=== PATIENT | female | born 2000 | race Caucasian/White ===

== ENCOUNTER 2024-04-08 16:25 | Emergency (ER) | payer BC, SELFPAY ==
--- NOTE | 2024-04-08 16:39 | ED.GENMED ---
History of Present Illness
General
Chief Complaint: Crisis Evaluation
Source: patient
Exam Limitations: none
Time Seen by Provider: 04/08/24 16:39
Nursing documentation reviewed up to this point in time: agreed with
History of Present Illness
History of Present Illness:
Is a 23-year female presents to the ER complaining of worsening anxiety and depression for the past 1 week. She has had a history of this however just recently started with a new therapist. She she reports however she only had 1 appointment which
was intake only. She became very tearful and upset today which is what prompted patient to come to the ER. Patient is here for crisis. She denies any suicidal thoughts but' does not feel point of living..'
She did not call her therapist today.
She is not on anxiety or antidepression medicine.She started on a control 4 months ago and believes this may have made symptoms worse
Review of Systems
Review of Systems
Allergies reviewed?: Yes
All Other Systems: ROS reviewed and negative except as documented in HPI and ROS
Skin: Reports no symptoms
Neurological: Reports no symptoms
Psychiatric: Reports depression and anxiety; Denies suicidal
Phy Exam
General Physical Exam
General Presentation: no apparent distress
General age: appears stated age
General Skin: warm and dry
General Habitus: normal
General Mental: alert
General Hydration: appears well hydrated
Course
Orders/Labs/Results
Orders:
Orders
04/08/24 17:06
Crisis Consult Urgent
Reason for Consult: depression
MDM/Problems Addressed
MDM/Problems Addressed:
Patient is medically cleared for crisis. I was present during triage with nurse vital signs were stable however incidentally vital signs were not documented in patient's chart
*Critical Care Note
Total Time (30-74mins, 75-104mins- exclusive of procedures): Not Applicable
ED Attending Note
-
Portions of this chart may have been created with voice recognition software.� Occasional wrong word or��sound alike� substitutions may have occurred due to the inherent limitations of voice recognition software.
Discharge Plan
Departure
Patient Disposition: Psych Facility
Date of Disposition: 04/08/24
Time of Disposition: 16:41
Patient with high blood pressure during this ER visit?: No
Condition: Fair
Covid-19: Not Applicable
Discharge Problem:
Depression
Instructions: Depression, Adult (DC), BLOOD PRESSURE
Activity Restrictions/Additional Instructions:
go directly to CRISIS here at [facility]
Interventions
Interventions:
*Risk Screen - Suicide Last Done: 04/08/24 16:27
*Nursing Disposition Last Done: 04/08/24 17:32
ED-Psychological Assessment Last Done: 04/08/24 16:40
Discharge Date and Time
Discharge Date/Time: 04/08/24 18:15
Print Language: RWANDAN
== END 2024-04-08 18:15 ==
LOC: EMR 16:25
PROVIDERS: EMERGENCY PHYSICIAN Emergency Medicine; FAMILY PHYSICIAN Family Medicine
DX: F32.A Depression, unspecified (principal); F41.9 Anxiety disorder, unspecified; Z79.3 Long term (current) use of hormonal contraceptives
CPT/HCPCS: 99285